=== PATIENT | male | born 1975 | race American Indian/Alaskan Native ===

== ENCOUNTER 2021-01-18 03:01 | Emergency (ER) | payer SELFPAY ==
[2021-01-18 03:04] VITALS: BP 116/67
--- NOTE | 2021-01-18 03:28 | Emergency Department Report ---
ED General Adult HPI - General Chief complaint: Dental/Oral Stated complaint: TOOTHACHE Source: patient Mode of arrival: Ambulatory Limitations: No Limitations - History of Present Illness Initial comments: Patient is a 45-year-old -[place] male with history of chronic recurrent dental abscesses presents to the ED with complaint of acute elevation of his chronic dental pain characterized by severe right maxillary gingival swelling and pain, premolar molar toothache for the last 2 days, worse in the last 8 hours. Patient states that he took ibuprofen 800 mg tablet 4 hours prior to arrival in the ED with no relief. Patient denies dizziness, syncope or fever, chills, nausea, vomiting, sore throat, traumatic injury, headache, chest pain or shortness of breath. MD Complaint: Dental pain; swelling gums -: Sudden, days(s) (2) Location: mouth Radiation: non-radiation Severity scale (0 -10): 8 Quality: aching, sharp Consistency: constant Improves with: none Worsens with: none Associated Symptoms: denies other symptoms. denies: confusion, chest pain, cough, diaphoresis, headaches, loss of appetite, nausea/vomiting, rash, shortness of breath, syncope, weakness Treatments Prior to Arrival: NSAID - Related Data Previous Rx's Medication Instructions Recorded Last Taken Type Albuterol Mdi (or & Nicu Only) 2 puff IH QID #1 inhalation 03/05/13 Unknown Rx [ProAir HFA Inhaler] Azithromycin [Zithromax Z-ALLAN] 250 mg PO DAILY #6 tab 03/05/13 Unknown Rx HYDROcodone/APAP 5-325 [[facility] - 2 each PO Q6HR PRN #14 tablet 04/17/13 Unknown Rx 5/325 mg] Acetaminophen/Codeine [Tylenol #3] 1 tab PO Q6H PRN #20 tab 04/16/15 Unknown Rx Amoxicillin [Trimox CAP] 500 mg PO Q8H #30 capsule 04/16/15 Unknown Rx Ibuprofen [Motrin] 600 mg PO Q8H PRN #40 tablet 04/16/15 Unknown Rx Clindamycin [Clindamycin CAP] 300 mg PO Q8HR #60 capsule 01/18/21 Unknown Rx Ibuprofen [Motrin] 600 mg PO Q8H PRN #30 tablet 01/18/21 Unknown Rx traMADoL [Ultram] 50 mg PO Q6HR PRN #12 tablet 01/18/21 Unknown Rx Allergies Allergy/AdvReac Type Severity Reaction Status Date / Time No Known Allergies Allergy Verified 03/05/13 13:13 ED Review of Systems ROS: Stated complaint: TOOTHACHE Other details as noted in HPI Constitutional: denies: chills, fever Eyes: denies: eye pain, eye discharge, vision change ENT: dental pain (Right maxillary premolar molar toothache; swollen painful right maxillary gingiva). denies: ear pain, throat pain Respiratory: denies: cough, shortness of breath, wheezing Cardiovascular: denies: chest pain, palpitations Endocrine: no symptoms reported Gastrointestinal: denies: abdominal pain, nausea, diarrhea Genitourinary: denies: urgency, dysuria Musculoskeletal: denies: back pain, joint swelling, arthralgia Skin: denies: rash, lesions Neurological: denies: headache, weakness, paresthesias Psychiatric: denies: anxiety, depression Hematological/Lymphatic: denies: easy bleeding, easy bruising ED Past Medical Hx - Past Medical History Previous Medical History?: No - Surgical History Past Surgical History?: No - Social History Smoking Status: Never Smoker Substance Use Type: None - Medications Home Medications: Home Medications Medication Instructions Recorded Confirmed Last Taken Type Albuterol Mdi (or & Nicu Only) 2 puff IH QID #1 inhalation 03/05/13 Unknown Rx [ProAir HFA Inhaler] Azithromycin [Zithromax Z-ALLAN] 250 mg PO DAILY #6 tab 03/05/13 Unknown Rx HYDROcodone/APAP 5-325 [[facility] - 2 each PO Q6HR PRN #14 tablet 04/17/13 Unknown Rx 5/325 mg] Acetaminophen/Codeine [Tylenol #3] 1 tab PO Q6H PRN #20 tab 04/16/15 Unknown Rx Amoxicillin [Trimox CAP] 500 mg PO Q8H #30 capsule 04/16/15 Unknown Rx Ibuprofen [Motrin] 600 mg PO Q8H PRN #40 tablet 04/16/15 Unknown Rx Clindamycin [Clindamycin CAP] 300 mg PO Q8HR #60 capsule 01/18/21 Unknown Rx Ibuprofen [Motrin] 600 mg PO Q8H PRN #30 tablet 01/18/21 Unknown Rx traMADoL [Ultram] 50 mg PO Q6HR PRN #12 tablet 01/18/21 Unknown Rx ED Physical Exam - General Limitations: No Limitations General appearance: alert, in no apparent distress - Head Head exam: Present: atraumatic, normocephalic, normal inspection - Eye Eye exam: Present: normal appearance, PERRL, EOMI Pupils: Present: normal accommodation - ENT ENT exam: Present: mucous membranes moist, TM's normal bilaterally, normal external ear exam, other (Swollen, severely tender right maxillary gingiva; s everely tender right maxillary premolar and molar teeth) - Neck Neck exam: Present: normal inspection, full ROM - Respiratory Respiratory exam: Present: normal lung sounds bilaterally. Absent: respiratory distress, wheezes, rales, stridor, chest wall tenderness, accessory muscle use, decreased breath sounds - Cardiovascular Cardiovascular Exam: Present: regular rate, normal rhythm, normal heart sounds. Absent: systolic murmur, diastolic murmur, rubs, gallop - GI/Abdominal GI/Abdominal exam: Present: soft, normal bowel sounds. Absent: distended, tenderness, guarding, rebound, hyperactive bowel sounds, hypoactive bowel sounds, organomegaly - Extremities Exam Extremities exam: Present: normal inspection, full ROM, normal capillary refill - Back Exam Back exam: Present: normal inspection, full ROM. Absent: tenderness, CVA tenderness (R), CVA tenderness (L), muscle spasm, paraspinal tenderness, vertebral tenderness - Neurological Exam Neurological exam: Present: alert, oriented X3, CN II-XII intact, normal gait, reflexes normal - Psychiatric Psychiatric exam: Present: normal affect, normal mood - Skin Skin exam: Present: warm, dry, intact, normal color. Absent: rash ED Course Vital Signs 01/18/21 03:03 Temperature 98.0 F Pulse Rate 71 Respiratory 18 Rate Blood Pressure 116/67 O2 Sat by Pulse 99 Oximetry ED Medical Decision Making - Medical Decision Making This is a 45-year-old -[place] male with history of chronic recurrent dental abscesses presents to the ED with complaint of acute elevation of his chronic dental pain characterized by severe right maxillary gingival swelling and pain, premolar molar toothache for the last 2 days, worse in the last 8 hours. Patient states that he took ibuprofen 800 mg tablet 4 hours prior to arrival in the ED with no relief. In the ED, patient is alert and oriented x3 and is not in any distress. Patient was treated for pain in the ED. Patient was therefore discharged home on pain medications and oral antibiotics and advised to follow-up with his dentist or primary care physician in 7 to 10 days for reevaluation. Patient was advised return to the ED immediately if symptoms get worse. - Differential Diagnosis Chronic gingivitis; chronic dental abscess; chronic dental caries Critical care attestation.: If time is entered above; I have spent that time in minutes in the direct care of this critically ill patient, excluding procedure time. ED Disposition Clinical Impression: Dental abscess, Chronic gingivitis, Dental caries Disposition: HOME / SELF CARE / HOMELESS Is pt being admited?: No Does the pt Need Aspirin: No Condition: Stable Instructions: Dental Abscess, [id number], Trench Mouth Additional Instructions: Take medication with food, drink plenty of fluids and follow-up with your dentist or primary care physician in 7 to 10 days for reevaluation. Return to the ED immediately if symptoms get worse. Prescriptions: Clindamycin [Clindamycin CAP] 300 mg PO Q8HR #60 capsule Ibuprofen [Motrin] 600 mg PO Q8H PRN #30 tablet PRN Reason: Pain traMADoL [Ultram] 50 mg PO Q6HR PRN #12 tablet PRN Reason: Pain Referrals: [facility] [Outside] - 7-10 days Time of Disposition: 03:26 Print Language: LAO
[2021-01-18] MEDS: HYDROcodone/ACETAMINOPHEN 7.5-325MG TAB PO ONE (04:12)
[2021-01-18] MEDS: ONDANSETRON 4 MG ODT TAB PO ONE (04:12)
[2021-01-18] MEDS: AMOXICILLIN/K CLAV 875/125MG TAB PO ONE (04:12)
== END 2021-01-18 04:23 | disposition home or self-care (01) ==
LOC: ED 03:01
DX: K04.7 Periapical abscess without sinus (principal); K02.9 Dental caries, unspecified; K05.11 Chronic gingivitis, non-plaque induced; Z79.899 Other long term (current) drug therapy
CPT/HCPCS: 99282; J3490; Q0162